=== PATIENT | male | born 1970 | race African-American/Black ===

== ENCOUNTER 2019-05-04 03:32 | Inpatient (IN) | payer SELFPAY ==
[2019-05-04 05:31] LABS: #Eosinphils 0.2 thou/uL (0.0-0.7); #Lymphocytes 1.5 thou/uL (1.20-3.40); #Monocytes 0.6 thou/uL (0.11-0.59); #Neutrophils 7.4 thou/uL (1.40-6.50); %Basophils 0.2 % (0.0-1.0); %Lymphocytes 15.2 % (21.0-51.0); %Monocytes 5.8 % (0.0-10.0); %Neutrophils 76.8 % (42.0-75.0); Hemoglobin 12.9 g/dL (14.0-18.0); Mean Corpuscular HGB CONC 32.2 g/dL (32.0-36.0); Mean Corpuscular Hemoglobin 30.2 pg (27.0-31.0); Mean Corpuscular Volume 93.9 fL (78.0-98.0); Mean Platelet Volume 7.8 fL (7.4-10.4); Platelet Count 247 thou/uL (130-400); RBC Distribution Width 12.8 % (11.5-14.5); Red Blood Cell (RBC) Count 4.25 mill/uL (4.70-6.10); White Blood Cell (WBC) Count 9.6 thou/uL (4.8-10.8)
[2019-05-04 05:50] LABS: ALT (SGPT) 11 U/L (8-55); AST (SGOT) 12 U/L (5-34); Albumin 3.9 g/dL (3.5-5.0); Alkaline Phosphatase 53 U/L (40-150); Anion Gap 12 mmol/L (10-20); BUN (Urea Nitrogen) 9 mg/dL (8.9-20.6); Bilirubin, Total 0.5 mg/dL (0.2-1.2); Calc. Creatinine Clearance 0 mL/min (70-130); Calcium 9.1 mg/dL (7.8-10.44); Carbon Dioxide 23 mmol/L (22-29); Chloride 105 mmol/L (98-107); Estimated GFR-MDRD Greater than 90; Globulin 3.1 g/dL (2.4-3.5); Glucose 92 mg/dL (70-105); Potassium 3.7 mmol/L (3.5-5.1); Sodium 136 mmol/L (136-145)
[2019-05-04] MEDS ORDERED: Ketorolac Tromethamine 30 MG/ML VIAL ONE (06:37)
[2019-05-04] MEDS ORDERED: cefTRIAXone\\ROCEPHIN 1 GM VIAL ONE (06:37)
[2019-05-04 07:48] VITALS: BMI 35.5
[2019-05-04] MEDS ORDERED: Acetaminophen 325 MG TAB PO PRN ×2 (08:23→12:27)
[2019-05-04] MEDS ORDERED: HYDROcodone/Acetaminophen 5/325 mg Tablet PO PRN ×3 (08:23→12:27)
[2019-05-04] MEDS ORDERED: Sodium Chloride 0.9% 1,000 ML IV SCH (08:30)
--- NOTE | 2019-05-04 10:45 | CT ---
CT RIGHT UPPER EXTREMITY WITH IV CONTRAST: Date: 05/04/19 INDICATION: History of swelling and redness in the right hand extending into the mid forearm, worsening over last 2 weeks. COMPARISON: None. FINDINGS: There is a peripherally enhancing fluid distention involving the tendon sheath of the extensor digito rum communis. Prominent radiocarpal wrist effusion with scattered intraarticular calcific densities, as well as chondrocalcinosis. Similar appearing joint effusion with chondrocalcinosis is present invo lving the MCP joints of the index through small digit. There is also involvement involving the index PIP joint. There are some periarticular erosions involving the index proximal phalangeal head, as wel l as portions of the distal scaphoid. There is soft tissue swelling involving the subcutaneous tissue s of the dorsal hand, wrist, and forearm. No acute fracture is evident. IMPRESSION: 1. Chondrocalcinosis with interarticular chondral bodies and joint effusion is suspicious for entiti es such as pseudogout. Hemochromatosis could also have this similar appearance, but is felt to be les s likely. Rheumatoid arthritis is felt to be less likely due to the presence of interarticular calcif ications. Septic arthritis is not entirely excluded, but is felt to be less likely. 2. Prominent tenosynovitis of the extensor digitorum communis. 3. Extensive subcutaneous edema of the dorsal right hand and right forearm. POS: BH
[2019-05-04] MEDS ORDERED: Senokot S 8.6-50 MG TAB PO PRN (12:27)
[2019-05-04] MEDS ORDERED: Ondansetron PF 4 MG/2 ML Vial IVP PRN (12:27)
[2019-05-04] MEDS ORDERED: Guaifenesin DM 100-10/5 ML UDCUP PO PRN (12:27)
[2019-05-04] MEDS ORDERED: HYDROcodone/Acetaminophen 10/325 mg Tablet PO PRN (12:27)
[2019-05-04] MEDS ORDERED: Bisacodyl 10 MG SUPP PR PRN (12:27)
[2019-05-04] MEDS ORDERED: traMADol HCl 50 MG TAB PO PRN (12:27)
[2019-05-04] MEDS ORDERED: Morphine 2 MG/ML SYRINGE SLOW IVP PRN (12:51)
--- NOTE | 2019-05-04 14:03 | MRI ---
MR of the right wrist with and without IV contrast INDICATION: Persistent swelling of the right wrist Contrast: 20 cc MultiHance COMPARISON: CT the right wrist dated 05/04/2019 FINDINGS: There is abnormal fluid signal intensity and enhancement involving the dorsal soft tissues of the hand and distal forearm suspicious for a cellulitis. There is fluid distention involving the tendon sheath of the second and fourth dorsal compartments which may be reactive; however, a potentia lly superinfected tenosynovitis cannot be entirely excluded. There is also some mild fluid seen in within the the distal ECU tendon sheath. There are numerous scattered erosions involving the wrist ca rpus as well as the MCP heads of the second through fifth digit. Calcifications were present within the cartilage as well as within the joint spaces. There are prominent effusions of the affected joint s. IMPRESSION: 1. Edema and enhancement of the soft tissues of the dorsal hand are suspicious for cellulitis. 2. There is fluid distention of the second, fourth and sixth dorsal compartments. Findings are suspic ious for tenosynovitis.; However, superimposed infection cannot be entirely excluded. 3. Joint effusion with particular erosions involving the MCPs of the second through fifth digits as w ell as the wrist carpus. Calcifications are present within the affected joints on the comparison CT examination. Findings may reflect sequela of a crystal arthropathy such as gout or pseudogout. Septic arthritis is felt to be unlikely.
[2019-05-04] MEDS: Piperacillin/Tazobactam 4.5 GM in Sodium Chloride 0.9% 100 ML IVPB SCH ×2 (15:12→21:03)
[2019-05-04] MEDS: methylPREDNISolone Sod Succ 40 MG VIAL IVP SCH (15:55)
--- NOTE | 2019-05-04 16:47 | HP ---
REASON FOR ADMISSION: Right upper extremity cellulitis with possible tenosynovitis of the hand. HISTORY OF PRESENTING ILLNESS: The patient gives history of swelling of his hand, which started out with his little finger 10 days back. There is swelling slowly spread across the dorsum of his hand and started to go up to his wrist and forearm now. He also has pain and is unable to flex and bend his fingers. All of this concerned him, hence came to emergency room. He mentions that he has known history of gout and has taken prior what he describes as colchicine, which has resolved it in the past. He states he has had pain in his ankles before when he took this. Currently, has no chest pain, fever, palpitation, PND, or orthopnea. PAST MEDICAL AND SURGICAL HISTORY: History of diagnosis of gout in 2003. The patient has not had regular followups nor does he know his uric acid levels. Obesity. No prior surgical history. CURRENT MEDICATIONS: Motrin p.r.n. ALLERGIES: NO KNOWN DRUG ALLERGIES. PERSONAL HISTORY: He chews tobacco. Drinks alcohol on the weekend. Does not abuse drugs. 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 FAMILY HISTORY: Both parents are healthy as far as he knows. He lives with a roommate. Has a girlfriend. No children. CODE STATUS: Full. REVIEW OF SYSTEMS: CONSTITUTIONAL: Negative for weight loss or gain, ability to conduct usual activities. SKIN: Negative for rash, itching. EYES: Negative for double vision, pain. ENT/MOUTH: Negative for nose bleeding, neck stiffness, pain, tenderness. CARDIOVASCULAR: Negative for palpitations, dyspnea on exertion, orthopnea. RESPIRATORY: Negative for shortness of breath, wheezing, cough, hemoptysis, fever or night sweats. GASTROINTESTINAL: Negative for poor appetite, abdominal pain, heartburn, nausea, vomiting, constipation, or diarrhea. GENITOURINARY: Negative for urgency, frequency, dysuria, nocturia. MUSCULOSKELETAL: Negative for pain, swelling. NEUROLOGIC/PSYCHIATRIC: Negative for anxiety, depression. ALLERGY/IMMUNOLOGIC: Negative for skin rash, bleeding tendency. MUSCULOSKELETAL: Negative for pain, swelling. NEUROLOGIC/PSYCHIATRIC: Negative for anxiety, depression. ALLERGY/IMMUNOLOGIC: Negative for skin rash, bleeding tendency. PHYSICAL EXAMINATION: GENERAL: The patient is a 48-year-old male, who is currently not in any acute distress. VITAL SIGNS: Blood pressure 126/84, pulse 90 per minute, respiratory rate 18 per minute, temperature 98.1 degrees Fahrenheit, saturating 97% on room air. NECK: Supple. No elevated JVD. HEENT: Eyes; extraocular muscles intact. Pupils reacting to light. Oral cavity, mucous membranes are moist. No exudates or congestion. CARDIOVASCULAR: S1 and S2, heard. Regular rhythm. RESPIRATORY: Air entry 1+ bilateral. No rales or rhonchi. ABDOMEN: Soft. Bowel sounds heard. No tenderness, rigidity, or guarding. EXTREMITIES: The right hand and fingers are swollen. There is also edema of the wrist extending up to the forearm. He has difficulty with range of motion of the fingers due to extreme pain. There are no peripheral pulses including radial and ulnar pulses that are felt. He is able to wiggle his fingers. No neurovascular compromise seen. Lower extremities, no edema or calf tenderness. VASCULAR: Peripheral pulses 2+ bilateral. No ischemic ulcerations or gangrene. CENTRAL NERVOUS SYSTEM: No gross focal deficits noted. The patient is alert, awake, oriented. Well psychiatric system. The patient's mood is euthymic. No hallucinations or delusions. LABORATORY DATA: White count of 9, H and H of 12 and 39, platelet count 247 with 76% neutrophils, MCV is 93. Electrolytes stable. BUN 9, creatinine 0.8, uric acid 7.2. Liver enzymes within normal limits. CRP 7.4. Albumin is 3.9. IMAGING STUDIES: Initial CT with IV contrast done showed chondrocalcinosis with intra-articular chondral bodies and joint effusion is suspicious for entities such as pseudogout, hemochromatosis, could also have this appearance. Rheumatoid arthritis is felt to be less likely due to presence of intra-articular calcification, septic arthritis is not entirely excluded. Prominent tenosynovitis of the extensor digitorum communis is seen. Extensive subcutaneous edema of the dorsal right hand and right forearm is seen. An MRI of the right hand shows edema and enhancement of soft tissues of the dorsal hand are suspicious for cellulitis. There is fluid distention of the 2nd, 4th and 6th dorsal compartments. Findings are suspicious for tenosynovitis, however, superimposed infection could not be excluded. Joint effusion with particular erosions involving the MCPs of the 2nd through 5th digits as well as the wrist carpus is seen. Calcifications are present within the affected joints on the comparison CT examination. Findings may reflect sequelae of a crystal arthropathy such as gout or pseudogout. Septic arthritis is felt to be unlikely based on the MRI. CLINICAL IMPRESSION AND PLAN: The patient will be admitted to medical floor for right hand cellulitis extending up to forearm. This has been progressively getting worse from last 10 days with no relief from Motrin. I have consulted Dr. Hernandez for Orthopedics and Hand surgery. He will be on Solu-Medrol 40 mg IV q.6 hourly. He will also be on morphine and Ultram p.r.n. for pain, Zosyn empirically placed in view of suspected tenosynovitis and cellulitis. We will obtain LEXI with reflex, rheumatoid arthritis screen as well. The patient has never had official diagnosis of gout, although he has visited the ER and was told he had gout. We will continue to closely monitor him on medical floor. Job ID: [id number]
[2019-05-04] MEDS ORDERED: methylPREDNISolone Sod Succ/PF 125 MG/2 ML VIAL IVP SCH (18:00)
--- NOTE | 2019-05-04 18:53 | RAD ---
XR Wrist 3 Rt View STANDARD: 05/04/2019 6:18 PM CLINICAL INDICATION: Edema COMPARISON: None. FINDINGS: Subtle cortical irregularity of the distal radius without displacement is present, chronic appearing. No discrete evidence for an acute, displaced fracture. There is moderate osteoarthritis. Soft tissue prominence is seen. Correlate clinically. IMPRESSION: No acute osseous abnormality identified. Mild chronic appearing cortical irregularity at the distal radius is seen. Soft tissue prominence.
--- NOTE | 2019-05-04 18:59 | RAD ---
RIGHT HAND THREE VIEWS: 05/04/19 INDICATION: Right hand pitting edema. COMPARISON: None. FINDINGS: There is periarticular erosive change involving MCP heads of the index and ring finger and involving the wrist carpus. There is soft tissue swelling of the right hand. IMPRESSION: 1. Extensive soft tissue swelling of the right hand. 2. Scattered erosive change of the wrist carpus, index and ring finger MCP joints. POS: BH
[2019-05-04] MEDS: Famotidine 20 MG TAB PO SCH (21:03)
[2019-05-05] MEDS: methylPREDNISolone Sod Succ 40 MG VIAL IVP SCH ×5 (00:20→23:47)
--- NOTE | 2019-05-05 05:02 | TCOM ---
DATE OF STUDY: 05/04/2019 HISTORY OF PRESENT ILLNESS: Mr. Hoang is a 48-year-old right-handed black male who states that without any history of trauma or increased activity, he initially had swelling in the right little finger about 10 days ago and the swelling and soreness gradually increased over his right hand into the wrist and distal aspect of the forearm. The swelling and pain increased to the point where he came to the emergency room for evaluation. Last night, the patient states that he was told that he has had gout, but there has never been a definitive diagnosis with uric acid crystals in the of his joints, but he has had attacks where he has had swelling around the joints and has taken medicine, which may possibly be colchicine. He has had pain and swelling in his ankles before and took a medicine that helped it. He has had no fever or chills. PAST MEDICAL HISTORY: The patient states he had been diagnosed with gout in 2003. CURRENT MEDICATIONS: Ibuprofen p.r.n. ALLERGIES: NONE. PAST SURGICAL HISTORY: None. PHYSICAL EXAMINATION: EXTREMITIES: Exam of the right hand and upper extremity, he has good range of motion of the right elbow without pain. He is able to supinate and pronate well without pain. He is nontender and has no swelling in the proximal aspect of the forearm. He starts having some swelling in the distal aspect of the forearm and then has significant swelling in the wrist and hand. He has tenderness on the dorsal and volar aspect of the wrist and he has some pitting edema in his hand, but no significant pain and swelling into the fingers and has some nodules, which could represent some gouty tophi. He had a CT scan and also had a MRI and MRI showed fluid and swelling in the 2nd, 4th, and 6th dorsal compartments, which was suspicious for a tenosynovitis, calcifications affecting the joints in the MCP joints, which could reflect crystal arthropathy such as gout or pseudogout. His admission laboratory showed white count of 9, hemoglobin 12, creatinine 0.8, BUN 9, uric acid 7.2. CRP 7.4. IMPRESSION: Pain, swelling in the right wrist and hand, which does appear to be more of a gout or pseudogout type presentation, cannot exclude cellulitis. PLAN: I would recommend to continue to treat him with IV antibiotics, also patient was started on IV Solu-Medrol, which I agree with. We will watch his progress. He should make fairly good progress as far as healing in the next day or 2. I doubt if I will need to open up any tendon sheaths, but it is possible, so we will keep an eye on that. Job ID: [id number]
[2019-05-05 05:51] LABS: #Lymphocytes 0.4 thou/uL (1.20-3.40); #Monocytes 0.2 thou/uL (0.11-0.59); #Neutrophils 7.5 thou/uL (1.40-6.50); %Eosinophils 0.2 % (0.0-10.0); %Lymphocytes 5.4 % (21.0-51.0); %Monocytes 2.1 % (0.0-10.0); %Neutrophils 92.4 % (42.0-75.0); Hemoglobin 13.8 g/dL (14.0-18.0); Mean Corpuscular HGB CONC 35.7 g/dL (32.0-36.0); Mean Corpuscular Hemoglobin 33.6 pg (27.0-31.0); Mean Corpuscular Volume 94.1 fL (78.0-98.0); Mean Platelet Volume 8.1 fL (7.4-10.4); Platelet Count 263 thou/uL (130-400); RBC Distribution Width 12.5 % (11.5-14.5); White Blood Cell (WBC) Count 8.1 thou/uL (4.8-10.8)
[2019-05-05] MEDS: Piperacillin/Tazobactam 4.5 GM in Sodium Chloride 0.9% 100 ML IVPB SCH ×3 (05:53→21:06)
[2019-05-05 06:07] LABS: Anion Gap 12 mmol/L (10-20); BUN (Urea Nitrogen) 14 mg/dL (8.9-20.6); Calc. Creatinine Clearance 134 mL/min (70-130); Calcium 9.7 mg/dL (7.8-10.44); Carbon Dioxide 25 mmol/L (22-29); Chloride 104 mmol/L (98-107); Estimated GFR-MDRD Greater than 90; Glucose 180 mg/dL (70-105); Potassium 4.6 mmol/L (3.5-5.1); Sodium 136 mmol/L (136-145)
[2019-05-05] MEDS ORDERED: HumaLOG 300 UNITS/3 ML VIAL SC PRN (07:40)
[2019-05-05] MEDS ORDERED: Dextrose 5% in Water 1,000 ML IV PRN (07:40)
[2019-05-05] MEDS ORDERED: Dextrose 50% Abboject 50 ML SYRINGE SLOW IVP PRN (07:40)
[2019-05-05] MEDS: Famotidine 20 MG TAB PO SCH ×2 (08:01→21:05)
[2019-05-05] MEDS: Enoxaparin Sodium 40 MG/0.4 ML SYRINGE SC SCH (08:01)
[2019-05-05] MEDS: Amlodipine 10 MG TAB PO SCH (09:02)
--- NOTE | 2019-05-05 11:16 | PDOC.PN ---
- Subjective Encounter Start Date: 05/05/19 Encounter Start Time: 09:00 Subjective: right hand swelling is coming down -: is able to flex his fingers a bit now - Objective Resuscitation Status - Order Detail: 05/04/19 12:21 Resuscitation Status Routine Resuscitation Status: FULL: Full Resuscitation MAR Reviewed: Yes Vital Signs & Weight: Vital Signs (12 hours) Temp Pulse Resp BP Pulse Ox 05/05/19 09:02 75 05/05/19 08:00 98.2 F 75 18 190/118 H 96 05/05/19 05:17 98.0 F 69 20 165/100 H 96 05/05/19 00:00 98.5 F 92 20 169/93 H 94 L Weight Weight 220 lb I&O: 05/04/19 05/05/19 05/06/19 06:59 06:59 06:59 Intake Total 1680 480 Balance 1680 480 Result Diagrams: 05/05/19 05:30 05/05/19 05:30 Phys Exam - Physical Examination HEENT: PERRLA, moist MMs Neck: no JVD, supple Respiratory: no wheezing, no rales Cardiovascular: RRR, no significant murmur Gastrointestinal: soft, non-tender, positive bowel sounds Musculoskeletal: pulses present right hand and forearm edema is receding Neurological: non-focal, moves all 4 limbs Psychiatric: normal affect, A&O x 3 Dx/Plan (1) Cellulitis of right upper extremity Code(s): L03.113 - CELLULITIS OF RIGHT UPPER LIMB Status: Acute (2) Gout attack Code(s): M10.9 - GOUT, UNSPECIFIED Status: Suspected Qualifiers: Gout site: wrist Encounter type: subsequent encounter Laterality: right (3) Glucose intolerance Code(s): E74.39 - OTHER DISORDERS OF INTESTINAL CARBOHYDRATE ABSORPTION Status : Acute Comment: sec to steroids (4) Obesity (BMI 30-39.9) Code(s): E66.9 - OBESITY, UNSPECIFIED Status: Chronic (5) HTN (hypertension) Code(s): I10 - ESSENTIAL (PRIMARY) HYPERTENSION Status: Acute Qualifiers: Hypertension type: essential hypertension Qualified Code(s): I10 - Essential (primary) hypertension - Plan is on steroids, colchicine -: empiric zosyn -: add norvasc and humalog sliding scale -: likely dc plan in am -: ingrid with reflex is pending Will need formal diagnosis of gout/pseudo gout confirmed with crystal demonstration or uric acid levels when current flare up resolves Review of Systems - Medications/Allergies Allergies/Adverse Reactions: Allergies Allergy/AdvReac Type Severity Reaction Status Date / Time No Known Drug Allergies Allergy Verified 05/04/19 16:19 Medications: Current Medications Acetaminophen (Tylenol) 650 mg PO Q4H PRN PRN Reason: Headache/Fever/Mild Pain (1-3) Hydrocodone Bitart/Acetaminophen ([place] 10/325) 1 tab PO Q4H PRN PRN Reason: Moderate Pain (4-6) Hydrocodone Bitart/Acetaminophen ([place] 5/325) 1 tab PO Q4H PRN PRN Reason: Mild Pain (1-3) Amlodipine Besylate (Norvasc) 10 mg PO DAILY [facility] Last Admin: 05/05/19 09:02 Dose: 10 mg Bisacodyl (Dulcolax) 10 mg DC DAILYPRN PRN PRN Reason: Constipation Dextrose/Water (Dextrose 50%) 25 gm SLOW IVP PRN PRN PRN Reason: Hypoglycemia Enoxaparin Sodium (Lovenox) 40 mg SC 0900 [facility] Last Admin: 05/05/19 08:01 Dose: Not Given Famotidine (Pepcid) 20 mg PO BID [facility] Last Admin: 05/05/19 08:01 Dose: 20 mg Glucagon (Glucagon) 1 mg IM PRN PRN PRN Reason: Hypoglycemia Guaifenesin/Dextromethorphan (Robitussin Dm) 15 ml PO Q4H PRN PRN Reason: Cough Piperacillin Sod/Tazobactam (Sod 4.5 gm/ Sodium Chloride) 100 mls @ 200 mls/hr IVPB Q8HR [facility] Last Admin: 05/05/19 05:53 Dose: 100 mls Dextrose/Water (D5w) 1,000 mls @ 0 mls/hr IV .Q0M PRN PRN Reason: Hypoglycemia Insulin Human Lispro (Humalog) 0 units SC .MODERATE SLIDING SC PRN PRN Reason: Moderate Correctional Scale Methylprednisolone Sodium Succinate (Solu-Medrol) 40 mg IVP Q6HR [facility] Last Admin: 05/05/19 05:53 Dose: 40 mg Morphine Sulfate (Morphine) 2 mg SLOW IVP Q4H PRN PRN Reason: Chest Pain/BP Elevations Ondansetron HCl (Zofran) 4 mg IVP Q6H PRN PRN Reason: Nausea/Vomiting Senna/Docusate Sodium (Senokot S) 2 tab PO BIDPRN PRN PRN Reason: Constipation Tramadol HCl (Ultram) 50 mg PO Q6H PRN PRN Reason: Pain
[2019-05-06] MEDS: methylPREDNISolone Sod Succ 40 MG VIAL IVP SCH (06:10)
[2019-05-06] MEDS: Piperacillin/Tazobactam 4.5 GM in Sodium Chloride 0.9% 100 ML IVPB SCH (06:11)
[2019-05-06] MEDS ORDERED: predniSONE 20 MG TAB PO SCH (08:00)
[2019-05-06] MEDS: Famotidine 20 MG TAB PO SCH (08:38)
[2019-05-06] MEDS: Amlodipine 10 MG TAB PO SCH (08:38)
[2019-05-06] MEDS: Enoxaparin Sodium 40 MG/0.4 ML SYRINGE SC SCH (08:39)
[2019-05-06 10:42] VITALS: TEMP 97.9
[2019-05-06 10:48] VITALS: BP 158/103
[2019-05-07 10:37] LABS: ANA Symphony (Qualitative) Negative (Negative); ANA Symphony (Quantitative) 0.1 Ratio (< 0.7 Negative); EliA RAS New Method **** NEW METHOD ****; Rheumatoid Factor IgA Antibody 2.2 IU/mL (<14 Negative); Rheumatoid Factor IgM Antibody 0.8 IU/mL (<3.5 Negative); dsDNA IgG Antibody 0.6 IU/mL (<10 Negative)
--- NOTE | 2019-05-07 14:04 | DIS ---
DATE OF ADMISSION: 05/04/2019 DATE OF DISCHARGE: 05/06/2019 DISCHARGE DISPOSITION: Home. 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 PROCEDURES DONE DURING HOSPITALIZATION: MRI of the right wrist with and without IV contrast, showed edema and enhancement of the soft tissues of the dorsal hand suspicious for cellulitis. There is fluid distention of the second, fourth, and sixth dorsal compartments. Findings are suspicious for tenosynovitis, joint effusion with particular erosions involving the MCPs on the second through fifth digits as well as the wrist carpus was seen. Calcification was present within the affected joints on the comparison CAT scan. Findings reflect sequelae of a crystal arthropathy such as gout or pseudogout. CT of right upper extremity with IV contrast done and showed chondrocalcinosis with intra-articular chondral bodies and joint effusion suspicious for pseudogout. Hemochromatosis could also have similar appearance, but less likely. RA was felt to be less likely due to presence of intra-articular calcifications. Prominent tenosynovitis of the extensor digitorum communis was seen. Extensive subcutaneous edema of the dorsal right hand and right forearm was seen. Plain x-ray three-view of right wrist done and showed no acute osseous abnormality, mild chronic-appearing cortical irregularity of the distal radius was seen, and soft tissue prominence was seen. Right hand three-view x-ray showed extensive soft tissue swelling of the right hand, scattered erosive change of the wrist carpus, index and ring finger MCP joints were seen. H and H of 13 and 38, platelet count 263, white count of 8, MCV is 94, and sedimentation rate 41. BUN 14 and creatinine 0.9. CRP 7.4. Rheumatoid factor IgA 2.2 and IgM 0.8. Cyclic citrulline peptide IgG was 1.0. All three were within normal limits. LEXI screen was negative. DISCHARGE MEDICATIONS: 1. Norvasc 10 mg p.o. daily. 2. Augmentin 875 mg twice daily for five days. 3. Prednisone tapering dose starting at 10 mg twice daily for 3 days and then daily for 3 days. ALLERGIES: NO KNOWN DRUG ALLERGIES. INPATIENT CONSULT: Dr. Hernandez for Orthopedic/Hand Surgery. DISCHARGE PLAN: The patient has been advised to follow up with his primary care physician in 1 week. BRIEF COURSE DURING HOSPITALIZATION: The patient initially came to ER with complaints of swelling of his right hand and forearm. This has been ongoing for last 10 days and had gotten worse with the patient unable to move his fingers. It was also painful. In view of this history, the patient was admitted to medical floor for right upper extremity cellulitis with initial suspicion for gout/pseudogout. He was placed on steroids along with morphine and Ultram p.r.n. The patient also received Zosyn empirically for suspected cellulitis of the hand. He has had consultation with Dr. Hernandez. The patient has had multiple imaging studies done, all of which were suspicious for possible pseudogout. LEXI was negative. Rheumatoid arthritis screen was negative as well. The patient likely has pseudogout and needs arthrocentesis at some point to review crystals for confirmation of his diagnosis. His edema and erythema are receding at the time of discharge. The patient is able to flex his fingers and his wrist. He is advised to continue Augmentin along with steroid taper. The patient needs to see his primary care physician before the steroid tapers. He was advised to follow up at [facility] or [facility], and the addresses and phone numbers of the clinics have been given to him. He likely needs uric acid level when his acute flare-up has receded. He is hemodynamically stable and will be shortly discharged home. Please note, the patient was diagnosed with hypertension during his stay here. Also, he had glucose intolerance with steroids. Likely, he is a prediabetic. The patient's BMI is 35. He was counseled with regard to weight loss and healthy eating. Please note, I have seen and examined the patient on the day of discharge. Job ID: [id number]
== END 2019-05-06 10:48 | disposition home or self-care (01) | DRG 603 ==
LOC: ERS 03:32 → OBSVTOIN 06:15 → ERHOLD 06:15 → T4-A 07:46
PROVIDERS: ADMIT Internal Medicine; ATTEND Internal Medicine
DX: L03.115 Cellulitis of right lower limb (principal); M10.9 Gout, unspecified; E74.39 Other disorders of intestinal carbohydrate absorption; I10 Essential (primary) hypertension; E66.9 Obesity, unspecified; Z68.35 Body mass index [BMI] 35.0-35.9, adult
CPT/HCPCS: 36415; 36416; 80048; 80053; 83520; 84550; 85025; 85652; 86038; 86140; 86200; 86225; 96365; 96375; J0696; J1650; J1885; J2543; J2920; J3490; J7512

== ENCOUNTER 2021-11-10 12:51 | Emergency (ER) | payer SELFPAY ==
[2021-11-10 13:57] LABS: #Basophils 0.1 thou/uL (0.0-0.2); #Eosinphils 0.4 thou/uL (0.0-0.7); #Lymphocytes 1.3 thou/uL (1.20-3.40); #Monocytes 0.8 thou/uL (0.11-0.59); #Neutrophils 7.5 thou/uL (1.40-6.50); %Basophils 0.8 % (0.0-1.0); %Eosinophils 3.5 % (0.0-10.0); %Lymphocytes 13.1 % (21.0-51.0); %Monocytes 7.7 % (0.0-10.0); %Neutrophils 74.8 % (42.0-75.0); Hemoglobin 14.1 g/dL (14.0-18.0); Mean Corpuscular HGB CONC 32.8 g/dL (32.0-36.0); Mean Corpuscular Hemoglobin 30.3 pg (27.0-31.0); Mean Corpuscular Volume 92.7 fL (78.0-98.0); Mean Platelet Volume 7.4 fL (7.4-10.4); Platelet Count 293 thou/uL (130-400); RBC Distribution Width 13.1 % (11.5-14.5); Red Blood Cell (RBC) Count 4.65 mill/uL (4.70-6.10)
[2021-11-10 14:20] LABS: ALT (SGPT) 14 U/L (8-55); AST (SGOT) 13 U/L (5-34); Alkaline Phosphatase 75 U/L (40-110); Anion Gap 17 mmol/L (10-20); BUN (Urea Nitrogen) 12 mg/dL (8.9-20.6); Bilirubin, Total 0.4 mg/dL (0.2-1.2); Calc. Creatinine Clearance 0 mL/min (70-130); Calcium 9.4 mg/dL (7.8-10.44); Carbon Dioxide 21 mmol/L (22-29); Chloride 103 mmol/L (98-107); Globulin 3.4 g/dL (2.4-3.5); Glucose 110 mg/dL (70-105); Protein, Total 7.4 g/dL (6.0-8.3); Sodium 137 mmol/L (136-145); Uric Acid 8.3 mg/dL (3.5-7.2)
== END 2021-11-10 16:18 | disposition home or self-care (01) ==
LOC: ERS 12:51
DX: M10.9 Gout, unspecified (principal)
CPT/HCPCS: 36415; 80053; 84550; 85025; 86140; 96372